=== PATIENT | female | born 1985 | race Caucasian/White ===

== ENCOUNTER 2017-01-22 15:06 | Emergency (ER) | payer OTHER ==
[~2017-01-22 15:06] MED LIST: LORA-474 PO; METH10TA PO
[2017-01-22 15:09] VITALS: BP 135/64; PULSE 71; RESP 15; TEMP 98.2; O2SAT 98
--- NOTE | 2017-01-22 15:17 | PD ---
Physical Exam Date Seen by Provider: Jan 22, 2017 Time Seen by Provider: 15:14 Narrative Pt is a 32 year old female presenting for evaluation of right finger paresthesia. She reports the first 3 fingers feel numb, she denies repetitive movements but states she is on her phone a lot. Pt denies any hx of diabetes. VSS, awaiting bed placement. Data Data Last Documented VS Vital Signs Date Time Temp Pulse Resp B/P (MAP) Pulse Ox O2 Delivery O2 Flow Rate FiO2 01/22/17 15:09 98.2 71 15 135/64 (87) 98 MDM Supervised Visit with TIMMY: Stella Patton Jan 22, 2017 15:17
[2017-01-22] MEDS ORDERED: PRED-503 PO (15:51)
--- NOTE | 2017-01-22 15:53 | PD ---
HPI Chief Complaint: Pain: Acute or Chronic Time Seen by Provider: 15:44 Travel History International Travel<30 days: No Contact w/Intl Traveler<30days: No Traveled to known affect area: No History of Present Illness HPI 32-year-old female presents emergency Department with 2 complaints. Her first complaint is right wrist pain with numbness and tingling in her first, second, third fingers 4 days. Denies injury. 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 Denies loss of sensation. Reports decreased social work therapist strength. Pain radiates to her elbow. Second complaint is multiple syncopal episodes 8 months. Her primary care provider is Dr. Hankins and she says she has not mentioned this to him. Last syncopal episode was yesterday. Has been reports possible seizure activity during some of the syncopal events. Denies chest pain, shortness of breath. Reports occasional heart palpitations but does not associate them to her syncopal episodes. No known aggravating factors to cause syncopal episodes. Denies fever, vomiting. Reports taking prescribes Xanax daily. Denies alcohol use. Denies illicit drug use. Has not taken any medications or tried injury with relieving her symptoms. Symptoms are moderate in severity. Allergies to penicillin. Has no medical complaints. No other modifying factors or associated signs and symptoms. PFSH Past Medical History Diminished Hearing: No Gastrointestinal Disorders: Yes Psychiatric: Yes Ulcer: Yes ?: Unknown : 1 Para: 1 Miscarriage: 0 : 0 Past Surgical History Abdominal Surgery: Yes (ulcer 2010) Social History Alcohol Use: Yes (RARE) Tobacco Use: Yes (1/2 PPD) Substance Use: Yes (opiates, benzos, cocaine. IVDU) Allergies-Medications (Allergen,Severity, Reaction): Coded Allergies: penicillin G (Unverified Allergy, Severe, 01/09/17) Reported Meds & Prescriptions Reported Meds & Active Scripts Active Deltasone (Prednisone) 20 Mg Tab 40 Mg PO DAILY 5 Days Review of Systems Except as stated in HPI: all other systems reviewed are Neg Physical Exam Narrative GENERAL: Well-nourished, well-developed female patient, in no acute distress SKIN: Warm and dry. HEAD: Atraumatic. Normocephalic. No Facial droop noted. Tongue midline. EYES: Pupils equal and round at 3 mm with brisk reaction. No scleral icterus. No injection or drainage. PERRLA. EOMI. ENT: Mucosa pink and moist. Airway patent. NECK: Trachea midline. No lymphadenopathy. CARDIOVASCULAR: Regular rate and rhythm. No murmur appreciated. RESPIRATORY: No accessory muscle use. Clear to auscultation. Breath sounds equal bilaterally. GASTROINTESTINAL: Abdomen soft, non-tender, nondistended. Hepatic and splenic margins not palpable. Bowel sounds are active 4 quadrants. MUSCULOSKELETAL: Right wrist without erythema, edema, ecchymosis; tenderness on palpation to the palmar aspect of the wrist; With full range of motion; no obvious deformities; sensory intact to all fingers; decreased social work therapist strength to the right hand; less than 3 second cap refill. No obvious deformities. No clubbing. No cyanosis. No edema. NEUROLOGICAL: Awake and alert. Oriented 3. No obvious cranial nerve deficits. Motor grossly within normal limits. Normal speech. No ataxia. No mid -line drift. Moves all extremities. 5/5 strength to all extremities. PSYCHIATRIC: Appropriate mood and affect; insight and judgment normal. Data Data Last Documented VS Vital Signs Date Time Temp Pulse Resp B/P (MAP) Pulse Ox O2 Delivery O2 Flow Rate FiO2 01/22/17 18:04 75 16 132/63 (86) 100 01/22/17 15:09 98.2 Orders Orders Electrocardiogram (01/22/17 15:40) Basic Metabolic Panel (Bmp) (01/22/17 15:40) Complete Blood Count With Diff (01/22/17 15:40) Splint Or Brace Apply/Monitor (01/22/17 15:40) Curb Setter Helper / Telemetry NEO.Q8H (01/22/17 16:04) Cockup Hand Splint (01/22/17 ) Blood Glucose (01/22/17 17:25) Labs Laboratory Tests Test 01/22/17 16:45 White Blood Count 5.4 TH/MM3 Red Blood Count 3.82 MIL/MM3 Hemoglobin 11.7 GM/DL Hematocrit 34.8 % Mean Corpuscular Volume 91.1 FL Mean Corpuscular Hemoglobin 30.7 PG Mean Corpuscular Hemoglobin Concent 33.7 % Red Cell Distribution Width 12.8 % Platelet Count 159 TH/MM3 Mean Platelet Volume 7.4 FL Neutrophils (%) (Auto) 50.5 % Lymphocytes (%) (Auto) 38.3 % Monocytes (%) (Auto) 5.8 % Eosinophils (%) (Auto) 4.8 % Basophils (%) (Auto) 0.6 % Neutrophils # (Auto) 2.7 TH/MM3 Lymphocytes # (Auto) 2.1 TH/MM3 Monocytes # (Auto) 0.3 TH/MM3 Eosinophils # (Auto) 0.3 TH/MM3 Basophils # (Auto) 0.0 TH/MM3 CBC Comment DIFF FINAL Differential Comment Blood Urea Nitrogen 10 MG/DL Creatinine 0.98 MG/DL Random Glucose 67 MG/DL Calcium Level 8.3 MG/DL Sodium Level 137 MEQ/L Potassium Level 4.0 MEQ/L Chloride Level 104 MEQ/L Carbon Dioxide Level 29.5 MEQ/L Anion Gap 4 MEQ/L Estimat Glomerular Filtration Rate 67 ML/MIN MDM Medical Decision Making Medical Screen Exam Complete: Yes Emergency Medical Condition: Yes Medical Record Reviewed: Yes Differential Diagnosis Wrist pain, carpal tunnel syndrome, syncope Narrative Course 32-year-old female physical examination consistent with suspected carpal tunnel syndrome of the right wrist. Patient also reports that she's been having syncopal episodes for the last 8 months. Last syncopal episode was yesterday. Velcro wrist splint provided for suspected carpal tunnel syndrome. Neuro exam is unremarkable. CBC, BMP, EKG ordered. Patient will be moved to medical bed for further treatment and evaluation. Report given to alternate provider. See their note for final patient disposition. Diagnosis Primary Impression: Carpal tunnel syndrome of right wrist Med/Other Pt SpecificInfo: Prescription(s) given Scripts Prednisone (Deltasone) 20 Mg Tab 40 MG PO DAILY for 5 Days, TAB 0 Refills Prov: Gogo Arciniega 01/22/17 Gogo Arciniega Jan 22, 2017 15:53
--- NOTE | 2017-01-22 16:03 | PD ---
HPI . falling asleep/? passing out Chief Complaint: Pain: Acute or Chronic Time Seen by Provider: 16:03 Travel History International Travel<30 days: No Contact w/Intl Traveler<30days: No Traveled to known affect area: No History of Present Illness HPI 32- year old female presents to the ED complaining of right 1st-3rd digit numbness radiating up her forearm and multiple episodes of syncope for the past 8-12 months. The patient has been seen prior by Columba Arciniega PA-C and was diagnosed and treated for carpal tunnel syndrome. Per visitor with the patient he reports that the patient often falls asleep. He reports that he is able to shake her awake, but she does not remember the episode. The patient reports multiple episodes of being awoken by multiple paramedics while asleep in parking lots. The patient reports that she takes 1 mg of Xanax daily and 100 mg of methadone. She is supposed to be taking Protonix for a perforated ulcer but cannot afford the medication. PFSH Past Medical History Diminished Hearing: No Gastrointestinal Disorders: Yes Psychiatric: Yes Ulcer: Yes ?: Unknown : 1 Para: 1 Miscarriage: 0 : 0 Past Surgical History Abdominal Surgery: Yes (ulcer 2010) Social History Alcohol Use: Yes (RARE) Tobacco Use: Yes (/2 PPD) Substance Use: Yes (opiates, benzos, cocaine. IVDU) Allergies-Medications (Allergen,Severity, Reaction): Coded Allergies: penicillin G (Unverified Allergy, Severe, 01/09/17) Reported Meds & Prescriptions Reported Meds & Active Scripts Active Deltasone (Prednisone) 20 Mg Tab 40 Mg PO DAILY 5 Days Review of Systems General / Constitutional: No: Fever, Chills, Weight Gain, Weight Loss, Other Eyes: No: Diploplia, Blurred Vision, Photophobia, Drainage, Redness, Foreign Body Sensation, Pain, Tearing, Blind Spots, Visual changes, Blindness, Other HENT: No: Headaches, Vertigo, Lightheadedness, Sore Throat, Rhinitis, Rhinorrhea, Congestion, Nosebleed, Neck Stiffness, Neck Pain, Masses, Gingival Bleeding, Dental Difficulties, Ear Discharge, Earache, Other Cardiovascular: No: Chest Pain or Discomfort, Palpitations, Irregular Rhythm, Tachycardia, Diaphoresis, Syncope, Dyspnea on exertion, Varicosities, Edema, Cyanosis, Varicosities, Phlebitis, Claudication, Other Respiratory: No: Cough, Shortness of Breath, Wheezing, Sneezing, Orthopnea, Hemoptysis, Stridor, Night Sweats, Pleuritic Pain, Other Gastrointestinal: No: Nausea, Vomiting, Diarrhea, Abdominal Pain, Hematemesis, Hematochezia, Constipation, Changes in Bowel Habits, Indigestion, Dysphagia, Loss of Appetite, Other Genitourinary: No: Urgency, Frequency, Dysuria, Nocturia, Hematuria, Decreased Urinary Output, Oliguria, Hesitancy, Dribbling, Incontinence, Pelvic Pain, Flank Pain, Dyspareunia, Discharge, Dysmenorrhea, Menorrhagia, Metorrhagia, Vaginal Bleeding, Other Musculoskeletal: Positive: Other (1st-3rd right digit numbness), No: Myalgias, Arthralgias, Limited ROM, Weakness, Cramping, Edema, Pain, Atrophy Skin: No Rash, No Itching, No Dryness, No Lumps, No Hives, No Change in Pigmentation, No Change in nails, No Alopecia, No Lesions, No Breast Lumps, No Breast Tenderness, No Breast Swelling, No Other Neurologic: Positive: Other (Hypersomnia), No: Weakness, Dizziness, Syncope, Focal Abnormalities, Coordination Problem, Tremor, Ataxia, Headache, Change in Mentation, Slurred Speech, Paresthesia, Incontinence, Seizures, Sensory Disturbance Psychiatric: No: Anxiety, Depression, Suicidal Ideations, Disorder of Thought, Mood Disorder, Substance Abuse, Homicidal Ideation, Other Endocrine: No: Heat Intolerance, Cold Intolerance, Polyuria, Polydipsia, Other Hematologic/Lymphatic: No: Easy Bruising, Lymph Node Enlargement, Other Physical Exam Narrative GENERAL: AAO x 3. NAD. SKIN: Warm and dry. HEAD: Atraumatic. Normocephalic. EYES: Pupils equal and round. No scleral icterus. No injection or drainage. ENT: No nasal bleeding or discharge. Mucous membranes pink and moist. NECK: Trachea midline. No JVD. CARDIOVASCULAR: Regular rate and rhythm. No S3, S4, or murmurs. RESPIRATORY: No accessory muscle use. Clear to auscultation. Breath sounds equal bilaterally. No wheezing, rales, or rhonchi. GASTROINTESTINAL: Abdomen soft, non-tender, nondistended. Hepatic and splenic margins not palpable. MUSCULOSKELETAL: Extremities without clubbing, cyanosis, or edema. No obvious deformities. NEUROLOGICAL: Awake and alert. No obvious cranial nerve deficits. Motor grossly within normal limits. Five out of 5 muscle strength in the arms and legs. Normal speech. PSYCHIATRIC: Appropriate mood and affect; insight and judgment normal. Data Data Last Documented VS Vital Signs Date Time Temp Pulse Resp B/P (MAP) Pulse Ox O2 Delivery O2 Flow Rate FiO2 01/22/17 18:04 75 16 132/63 (86) 100 01/22/17 15:09 98.2 Orders Orders Electrocardiogram (01/22/17 15:40) Basic Metabolic Panel (Bmp) (01/22/17 15:40) Complete Blood Count With Diff (01/22/17 15:40) Splint Or Brace Apply/Monitor (01/22/17 15:40) Dietist / Telemetry NEO.Q8H (01/22/17 16:04) Cockup Hand Splint (01/22/17 ) Blood Glucose (01/22/17 17:25) Labs Laboratory Tests Test 01/22/17 16:45 White Blood Count 5.4 TH/MM3 Red Blood Count 3.82 MIL/MM3 Hemoglobin 11.7 GM/DL Hematocrit 34.8 % Mean Corpuscular Volume 91.1 FL Mean Corpuscular Hemoglobin 30.7 PG Mean Corpuscular Hemoglobin Concent 33.7 % Red Cell Distribution Width 12.8 % Platelet Count 159 TH/MM3 Mean Platelet Volume 7.4 FL Neutrophils (%) (Auto) 50.5 % Lymphocytes (%) (Auto) 38.3 % Monocytes (%) (Auto) 5.8 % Eosinophils (%) (Auto) 4.8 % Basophils (%) (Auto) 0.6 % Neutrophils # (Auto) 2.7 TH/MM3 Lymphocytes # (Auto) 2.1 TH/MM3 Monocytes # (Auto) 0.3 TH/MM3 Eosinophils # (Auto) 0.3 TH/MM3 Basophils # (Auto) 0.0 TH/MM3 CBC Comment DIFF FINAL Differential Comment Blood Urea Nitrogen 10 MG/DL Creatinine 0.98 MG/DL Random Glucose 67 MG/DL Calcium Level 8.3 MG/DL Sodium Level 137 MEQ/L Potassium Level 4.0 MEQ/L Chloride Level 104 MEQ/L Carbon Dioxide Level 29.5 MEQ/L Anion Gap 4 MEQ/L Estimat Glomerular Filtration Rate 67 ML/MIN MDM Medical Decision Making Medical Screen Exam Complete: Yes Emergency Medical Condition: Yes Medical Record Reviewed: Yes Differential Diagnosis Narcolepsy, Absence Seizures, hypoglycemia Narrative Course 32 yr old female here and supposedly falling asleep or passing out frequently. This has been going on for 8 mts. I discussed with my attending Dr. Gomez who recommends CBC, BMP and EKG. He reviewed the EKG which is normal. Laboratory Tests Test 01/22/17 16:45 White Blood Count 5.4 TH/MM3 Red Blood Count 3.82 MIL/MM3 Hemoglobin 11.7 GM/DL Hematocrit 34.8 % Mean Corpuscular Volume 91.1 FL Mean Corpuscular Hemoglobin 30.7 PG Mean Corpuscular Hemoglobin Concent 33.7 % Red Cell Distribution Width 12.8 % Platelet Count 159 TH/MM3 Mean Platelet Volume 7.4 FL Neutrophils (%) (Auto) 50.5 % Lymphocytes (%) (Auto) 38.3 % Monocytes (%) (Auto) 5.8 % Eosinophils (%) (Auto) 4.8 % Basophils (%) (Auto) 0.6 % Neutrophils # (Auto) 2.7 TH/MM3 Lymphocytes # (Auto) 2.1 TH/MM3 Monocytes # (Auto) 0.3 TH/MM3 Eosinophils # (Auto) 0.3 TH/MM3 Basophils # (Auto) 0.0 TH/MM3 CBC Comment DIFF FINAL Differential Comment Blood Urea Nitrogen 10 MG/DL Creatinine 0.98 MG/DL Random Glucose 67 MG/DL Calcium Level 8.3 MG/DL Sodium Level 137 MEQ/L Potassium Level 4.0 MEQ/L Chloride Level 104 MEQ/L Carbon Dioxide Level 29.5 MEQ/L Anion Gap 4 MEQ/L Estimat Glomerular Filtration Rate 67 ML/MIN Discussed with patient and significant other. Labs are fairly normal except for low blood sugar. I explained that she could have some hypoglycemia and needs to eat regular meals and f/u with PCP for further testing for DM. From her significant other's report to see the patient have some narcolepsy. I' ve discussed this with her and him. I recommend further workup by primary care provider. Repeat accuchek was 95 prior to discharge. Diagnosis Primary Impression: Somnolence, daytime Additional Impression: Carpal tunnel syndrome of right wrist Patient Instructions: General Instructions Additional Instructions: Please return to emergency department if your symptoms return or worsen. Follow up with your primary care provider. Take medications as prescribed. Scripts Prednisone (Deltasone) 20 Mg Tab 40 MG PO DAILY for 5 Days, TAB 0 Refills Prov: Gogo Arciniega 01/22/17 Disposition: 01 DISCHARGE HOME Condition: Stable Kizzy Young Jan 22, 2017 16:03
[2017-01-22 17:03] LABS: AUTOMATED NEUTROPHIL # 2.7 TH/MM3 (1.8-7.7); BASOPHIL % 0.6 % (0.0-2.0); EOSINOPHIL # 0.3 TH/MM3 (0-0.4); EOSINOPHIL % 4.8 % (0.0-4.0); HEMATOCRIT 34.8 % (35.0-46.0); HEMO FLAGS DIFF FINAL; LYMPH % 38.3 % (9.0-44.0); LYMPHOCYTE # 2.1 TH/MM3 (1.0-4.8); MEAN CELL VOLUME 91.1 FL (80.0-100.0); MEAN CORPUSCULAR HEMOGLOBIN 30.7 PG (27.0-34.0); MEAN CORPUSCULAR HGB CONC 33.7 % (32.0-36.0); MONO % 5.8 % (0.0-8.0); NEUT % 50.5 % (16.0-70.0); PLATELET COUNT 159 TH/MM3 (150-450); RED BLOOD COUNT 3.82 MIL/MM3 (4.00-5.30); RED CELL DISTRIBUTION WIDTH 12.8 % (11.6-17.2); WHITE BLOOD COUNT 5.4 TH/MM3 (4.0-11.0)
[2017-01-22 17:25] LABS: BICARBONATE 29.5 MEQ/L (21.0-32.0)
[2017-01-22 18:04] VITALS: BP 132/63
--- NOTE | 2017-01-23 13:11 | EKG ---
Date Performed: 01/22/2017 Time Performed: 16:39:40 PTAGE: 32 years EKG: SINUS BRADYCARDIA PROLONGED QT INTERVAL ABNORMAL ECG PREVIOUS TRACING : 07/04/2010 17.32 Compared to prior tracing no significant change DOCTOR: Kitty Rubalcava Interpretating Date/Time 01/23/2017 13:10:36
== END 2017-01-22 18:12 | disposition home or self-care (01) ==
LOC: NEPK 15:06 → NEPD 18:12
DX: G56.01 Carpal tunnel syndrome, right upper limb (principal); R40.0 Somnolence; R94.31 Abnormal electrocardiogram [ECG] [EKG]; R55 Syncope and collapse; F17.200 Nicotine dependence, unspecified, uncomplicated; Z87.19 Personal history of other diseases of the digestive system; Z86.59 Personal history of other mental and behavioral disorders
CPT/HCPCS: 80048; 85025; 93005; 99284; L3908

== ENCOUNTER 2017-04-01 14:54 | Emergency (ER) | payer SELFPAY ==
[~2017-04-01] VITALS: Ht 165.1 cm; Wt 60.0 kg
[~2017-04-01 14:54] MED LIST changes: -LORA-474 PO; -METH10TA PO; +PRED-503 PO
[2017-04-01 14:55] VITALS: BP 131/83; PULSE 101; RESP 18; TEMP 98.5; O2SAT 97
[2017-04-01 15:30] VITALS: BP 141/83; PULSE 86; RESP 16; O2SAT 95
[2017-04-01] MEDS ORDERED: LEVE250 PO (15:39)
[2017-04-01] MEDS ORDERED: SODIUM CHLOR 0.9% 1000 ML INJ 1,000 ML IV ONE (15:49)
--- NOTE | 2017-04-01 15:54 | PD ---
HPI Chief Complaint: Seizure Time Seen by Provider: 15:41 Travel History International Travel<30 days: No Contact w/Intl Traveler<30days: No Traveled to known affect area: No History of Present Illness HPI 32-year-old female presents to the emergency department for evaluation of seizures. The patient states that she started having seizures in December while in senior living. She was started on Keppra. She was released from senior living on March 27, 2017 has been off her Keppra since. Patient states she has been having multiple seizures a day since being discharged. The patient states she has never been evaluated for her seizures in the past. Patient does report history of drug use. She states that she takes methadone and Xanax now. She states that she was using cocaine, but hasn't used since she was placed in senior living. Patient denies fevers or chills. She denies any tongue been biting or incontinence. Apparently, patient has seizure while in the waiting room. However, she is not postictal upon my exam. Patient states that she is supposed to take Protonix due to history of ulcer, but is not currently taking. She has no other medical problem. Patient is unsure if she could be . She has no other complaints at this time. Patient states she drinks alcohol occasionally. PFSH Past Medical History Diminished Hearing: No Gastrointestinal Disorders: Yes Psychiatric: Yes Seizures: Yes Ulcer: Yes ?: Not LMP: 03/06/17 : 1 Para: 1 Miscarriage: 0 : 0 Past Surgical History Abdominal Surgery: Yes (ulcer 2010) Social History Alcohol Use: Yes (RARE) Tobacco Use: Yes (1/2 PPD) Substance Use: Yes (opiates, benzos, cocaine. IVDU) Allergies-Medications (Allergen,Severity, Reaction): Coded Allergies: penicillin G (Unverified Allergy, Severe, 04/01/17) Reported Meds & Prescriptions Reported Meds & Active Scripts Active Reported Keppra (Levetiracetam) Unknown Strength Tab Unknown Dose PO BID Review of Systems Except as stated in HPI: all other systems reviewed are Neg Physical Exam Narrative GENERAL: Well-nourished, well-developed female patient, afebrile. SKIN: Focused skin assessment warm/dry. HEAD: Normocephalic. Atraumatic. ENT: Mucosa pink and moist. No erythema or exudates. No uvular edema. No uvular , palatal, or tonsillar deviation. Airway patent. Nasal turbinates appear normal without nasal blood, purulent drainage or septal hematoma. Bilateral tympanic membranes are clear without erythema or perforation. EYES: No scleral icterus. No injection or drainage. NECK: Supple, trachea midline. No JVD or lymphadenopathy. CARDIOVASCULAR: Regular rate and rhythm without murmurs, gallops, or rubs. RESPIRATORY: Breath sounds equal bilaterally. No accessory muscle use. Lungs sounds are clear to auscultation GASTROINTESTINAL: Abdomen soft, non-tender, nondistended. MUSCULOSKELETAL: No cyanosis, or edema. BACK: Nontender without obvious deformity. No CVA tenderness. Data Data Last Documented VS Vital Signs Date Time Temp Pulse Resp B/P (MAP) Pulse Ox O2 Delivery O2 Flow Rate FiO2 04/01/17 16:00 16 96 Room Air 04/01/17 14:55 98.5 101 Orders Orders Complete Blood Count With Diff (04/01/17 15:49) Drug Screen, Random Urine (04/01/17 15:49) Electrocardiogram (04/01/17 ) Ct Brain W/O Iv Contrast(Rout) (04/01/17 ) Blood Glucose (04/01/17 15:49) Ecg Monitoring (04/01/17 15:49) Iv Access Insert/Monitor (04/01/17 15:49) Oximetry (04/01/17 15:49) Comprehensive Metabolic Panel (04/01/17 15:49) Sodium Chlor 0.9% 1000 Ml Inj (Ns 1000 M (04/01/17 15:49) Sodium Chloride 0.9% Flush (Ns Flush) (04/01/17 16:00) Ua Includes Microscopic (04/01/17 15:49) Ed Urine Pregnancytest Poc (04/01/17 15:49) Magnesium (Mg) (04/01/17 15:49) Levetiracetam (Keppra) (04/01/17 18:15) Labs Laboratory Tests Test 04/01/17 16:02 04/01/17 17:00 White Blood Count 5.1 TH/MM3 Red Blood Count 3.59 MIL/MM3 Hemoglobin 11.3 GM/DL Hematocrit 32.9 % Mean Corpuscular Volume 91.6 FL Mean Corpuscular Hemoglobin 31.4 PG Mean Corpuscular Hemoglobin Concent 34.3 % Red Cell Distribution Width 13.6 % Platelet Count 248 TH/MM3 Mean Platelet Volume 7.1 FL Neutrophils (%) (Auto) 58.0 % Lymphocytes (%) (Auto) 32.7 % Monocytes (%) (Auto) 6.1 % Eosinophils (%) (Auto) 3.0 % Basophils (%) (Auto) 0.2 % Neutrophils # (Auto) 2.9 TH/MM3 Lymphocytes # (Auto) 1.7 TH/MM3 Monocytes # (Auto) 0.3 TH/MM3 Eosinophils # (Auto) 0.2 TH/MM3 Basophils # (Auto) 0.0 TH/MM3 CBC Comment DIFF FINAL Differential Comment Blood Urea Nitrogen 8 MG/DL Creatinine 0.64 MG/DL Random Glucose 119 MG/DL Total Protein 7.1 GM/DL Albumin 3.3 GM/DL Calcium Level 8.6 MG/DL Magnesium Level 2.0 MG/DL Alkaline Phosphatase 136 U/L Aspartate Amino Transf (AST/SGOT) 184 U/L Alanine Aminotransferase (ALT/SGPT) 255 U/L Total Bilirubin 0.9 MG/DL Sodium Level 137 MEQ/L Potassium Level 3.6 MEQ/L Chloride Level 102 MEQ/L Carbon Dioxide Level 27.7 MEQ/L Anion Gap 7 MEQ/L Estimat Glomerular Filtration Rate 109 ML/MIN Urine Color YELLOW Urine Turbidity CLEAR Urine pH 5.0 Urine Specific [place] 1.011 Urine Protein NEG mg/dL Urine Glucose (UA) NEG mg/dL Urine Ketones NEG mg/dL Urine Occult Blood NEG Urine Nitrite NEG Urine Bilirubin NEG Urine Urobilinogen LESS THAN 2.0 MG/DL Urine Leukocyte Esterase MOD Urine RBC 1 /hpf Urine WBC 2 /hpf Urine Squamous Epithelial Cells 2 /hpf Urine Hyaline Casts 4 /lpf Urine Mucus FEW /lpf Urine Opiates Screen NEG Urine Barbiturates Screen NEG Urine Amphetamines Screen NEG Urine Benzodiazepines Screen POS Urine Cocaine Screen NEG Urine Cannabinoids Screen POS MDM Medical Decision Making Medical Screen Exam Complete: Yes Emergency Medical Condition: Yes Medical Record Reviewed: Yes Interpretation(s) CT brain -CONCLUSION: Negative noncontrast head CT. Differential Diagnosis Recurrent seizures versus electrolyte abnormality versus intracranial abnormality versus substance abuse Narrative Course 32-year-old female presents to the emergency department for evaluation of seizures that apparently started. However, she has not taken her Keppra since being discharged from senior living on March 27. EKG, CBC, CMP, magnesium, UA, urine drug screen, urine test are ordered and pending. CT of the brain is ordered and pending. Patient is given normal saline 1 L IV bolus. EKG shows sinus rhythm, heart rate 67, no acute ST changes. CBC shows anemia of 11.3, hematocrit 32.9. CMP shows elevated liver enzymes with AST of 184, ALT 256. Magnesium is 2.0. UA is negative for acute infection. UDS is positive for benzodiazepines and cannabinoids. UPT is negative according to RN. CT of the brain is negative. Patient is instructed to follow-up with primary care physician and neurologist. She is aware of elevated liver enzymes and is aware that she needs to follow up. She will be restarted on her Keppra. She is given first dose of Keppra in the emergency department. The patient was discharged in stable condition with instructions, including return instructions and follow up instructions. Diagnosis Primary Impression: Seizure Referrals: [facility] call for appointment Patient Instructions: General Instructions, Generalized Tonic Clonic Seizures ( ED) Additional Instructions: Take Keppra as directed. I gave you the first dose here. Follow-up with a primary care physician and neurologist. [facility] [place] is a good resource. Return to the emergency department for any acute worsening of symptoms. Med/Other Pt SpecificInfo: Prescription(s) given Scripts Levetiracetam (Keppra) 500 Mg Tab 500 MG PO BID for Control Seizures, #60 TAB 0 Refills Prov: Yohana Burns 04/01/17 Disposition: 01 DISCHARGE HOME Condition: Stable Yohana Burns Apr 01, 2017 15:54
[2017-04-01 16:00] VITALS: RESP 16; O2SAT 96
[2017-04-01] MEDS ORDERED: SODIUM CHLORIDE 0.9% FLUSH 10 ML FLUSH IVF PRN (16:00)
--- NOTE | 2017-04-01 16:10 | RADRPT ---
EXAM DATE/TIME: 04/01/2017 16:03 [place] COMPARISON: No previous studies available for comparison. INDICATIONS : Seizure. RADIATION DOSE: 36.33 CTDIvol (mGy) MEDICAL HISTORY : Seizures. SURGICAL HISTORY : None. ENCOUNTER: Initial ACUITY: 1 day PAIN SCALE: 0/10 LOCATION: cranial TECHNIQUE: Multiple contiguous axial images were obtained of the head. Using automated exposure control and adj ustment of the mA and/or kV according to patient size, radiation dose was kept as low as reasonably a chievable to obtain optimal diagnostic quality images. DICOM format image data is available electro nically for review and comparison. FINDINGS: CEREBRUM: The ventricles are normal for age. No evidence of midline shift, mass lesion, hemorrhage or acute in farction. No extra-axial fluid collections are seen. POSTERIOR FOSSA: The cerebellum and brainstem are intact. The 4th ventricle is midline. The cerebellopontine angle i s unremarkable. EXTRACRANIAL: The visualized portion of the orbits is intact. SKULL: The calvaria is intact. No evidence of skull fracture. CONCLUSION: Negative noncontrast head CT. Bert Schwab MD on April 01, 2017 at 16:08 Board Certified Radiologist. This report was verified electronically.
[2017-04-01 16:23] LABS: AUTOMATED NEUTROPHIL # 2.9 TH/MM3 (1.8-7.7); BASOPHIL % 0.2 % (0.0-2.0); EOSINOPHIL # 0.2 TH/MM3 (0-0.4); HEMATOCRIT 32.9 % (35.0-46.0); HEMO FLAGS DIFF FINAL; LYMPH % 32.7 % (9.0-44.0); LYMPHOCYTE # 1.7 TH/MM3 (1.0-4.8); MEAN CELL VOLUME 91.6 FL (80.0-100.0); MEAN CORPUSCULAR HEMOGLOBIN 31.4 PG (27.0-34.0); MEAN CORPUSCULAR HGB CONC 34.3 % (32.0-36.0); MONO % 6.1 % (0.0-8.0); PLATELET COUNT 248 TH/MM3 (150-450); RED BLOOD COUNT 3.59 MIL/MM3 (4.00-5.30); RED CELL DISTRIBUTION WIDTH 13.6 % (11.6-17.2); WHITE BLOOD COUNT 5.1 TH/MM3 (4.0-11.0)
[2017-04-01 17:00] VITALS: BP 111/64; PULSE 84; RESP 18; O2SAT 100
[2017-04-01 17:03] LABS: ALT (GPT) 255 U/L (10-53); ANION GAP 7 MEQ/L (5-15); AST (GOT) 184 U/L (15-37); BICARBONATE 27.7 MEQ/L (21.0-32.0); BLOOD UREA NITROGEN 8 MG/DL (7-18); CHLORIDE 102 MEQ/L (98-107); GLOMERULAR FILTRATION RATE 109 ML/MIN (>89); POTASSIUM 3.6 MEQ/L (3.5-5.1); SODIUM (NA) 137 MEQ/L (136-145)
[2017-04-01 17:04] LABS: ALKALINE PHOSPHATASE 136 U/L (45-117); TOTAL BILIRUBIN ADULT 0.9 MG/DL (0.2-1.0)
[2017-04-01 17:41] LABS: BLOOD, URINE NEG (NEG); GLUCOSE,URINE NEG (NEG); HYALINE CAST, URINE 4 /lpf (RARE); KETONE, URINE NEG (NEG); MUCUS URINE FEW /lpf (OCC); NITRITE,URINE NEG (NEG); SQUAMOUS EPITHELIAL CELL URINE 2 /hpf (0-5); URINE COLOR YELLOW (YELLW/STRAW)
[2017-04-01 18:00] VITALS: BP 100/59; PULSE 82; RESP 18; O2SAT 97
[2017-04-01] MEDS ORDERED: LEVE500 PO (18:08)
[2017-04-01] MEDS ORDERED: levETIRAcetam 500 MG TAB PO ONE (18:15)
--- NOTE | 2017-04-01 21:10 | EKG ---
Date Performed: 04/01/2017 Time Performed: 16:47:41 PTAGE: 32 years EKG: Sinus rhythm NORMAL ECG PREVIOUS TRACING : 01/22/2017 16.39 No significant change from previous tracing noted. DOCTOR: Tevin Pittman Interpretating Date/Time 04/01/2017 21:10:06
== END 2017-04-01 19:24 | disposition home or self-care (01) ==
LOC: NEPE 14:54
DX: R56.9 Unspecified convulsions (principal)
CPT/HCPCS: 70450; 80053; 80307; 81001; 83735; 84703; 85025; 93005; 96360; 99285; J7030